=== PATIENT | female | born 1960 | race Caucasian/White ===

== ENCOUNTER 2022-11-24 09:34 | Inpatient (IN) ==
[2022-11-24 12:03] LABS: ABS Lymphocytes 1.2 10^3/uL (1.0-4.8); ABS Monocytes 0.4 10^3/uL (0.0-0.9); ABS Neutrophils 5.1 10^3/uL (1.5-7.6); ABS Nucleated RBC 0.01 10^3/ul; Eosinophil % 0.5 %; Hematocrit 39.4 % (35-45); Hemoglobin 13.3 g/dL (11.5-14.3); Lymphocyte % 17.7 %; Mean Corpuscular Hemoglobin 30.1 pg (27-33); Mean Corpuscular Hgb Conc 33.8 g/dL (31-36); Mean Corpuscular Volume 89.1 fL (80-97); Mean Platelet Volume 7.6 fL (7.5-11.2); Nucleated Red Blood Cells % 0.1 /100 WBC (0.0-0.4); Platelet Count 306 10^3/uL (150-450); Red Blood Count 4.43 10^6/uL (3.63-4.92); Red Cell Distribution Width 13.7 % (12-17); White Blood Count 6.8 10^3/uL (3.8-11.8)
[2022-11-24 12:17] LABS: ALT 16 U/L (7-52); AST 16 U/L (13-39); Albumin 4.5 g/dL (3.2-5.2); Albumin/Globulin Ratio 1.6 (1-3); Alkaline Phosphatase 118 U/L (35-149); Anion Gap 8 mmol/L (2-16); Blood Urea Nitrogen 20 mg/dL (6-24); CO2 Carbon Dioxide 24 mmol/L (22-32); Calcium 9.6 mg/dL (8.6-10.3); Chloride 104 mmol/L (101-111); Globulin 2.8 g/dL (2-4); Glucose 83 mg/dL (70-100); Potassium 4.2 mmol/L (3.5-5.0); Sodium 136 mmol/L (135-145); Total Protein 7.3 g/dL (6.4-8.9); eGFR CKD-EPI 97.7 (>60)
[2022-11-24 12:54] LABS: TSH Ultra Thyroid Stim Horm 0.56 mcIU/mL (0.34-5.60)
[2022-11-24 13:12] LABS: Acetaminophen < 15 mcg/mL; Alcohol, S < 13 mg/dL (<13); Salicylate < 2.50 mg/dL (<30)
[2022-11-24 14:55] LABS: Urine Appearance Cloudy; Urine Bilirubin Negative (Negative); Urine Blood 3+ (Negative); Urine Color Yellow; Urine Glucose Negative (Negative); Urine Ketones Negative (Negative); Urine Nitrite Negative (Negative); Urine Protein 1+(30 mg/dL) (Negative); Urine Specific Gravity 1.024 (1.002-1.030); Urine Urobilinogen Negative (Negative)
[2022-11-24 15:14] LABS: Urine Benzodiazepine Screen Presumptive Positive (None Detect); Urine Cannabinoids Screen None Detected (None Detect); Urine Opiates Screen None Detected (None Detect)
[2022-11-24 15:18] LABS: Urine Bacteria Absent (Absent); Urine Red Blood Cell 2+(6-10/hpf) (Absent); Urine Squamous Epithelial Cell Present (Absent); Urine White Blood Cell Trace(0-5/hpf) (Absent)
[2022-11-24] MEDS ORDERED: Al Hydrox/Mg Hydrox/Simet LIQ 30 ML UDC PO PRN (18:41)
[2022-11-25] MEDS: Vitamin THERAPEUTIC TAB PO SCH (08:21)
[2022-11-26 08:12] LABS: HDL Cholesterol 67.9 mg/dL
[2022-11-26] MEDS: Vitamin THERAPEUTIC TAB PO SCH (08:21)
[2022-11-27] MEDS: Vitamin THERAPEUTIC TAB PO SCH (09:09)
[2022-11-27] MEDS ORDERED: Lorazepam PYXIS KEY PRN (18:16)
[2022-11-27] MEDS ORDERED: LORazepam 2 mg VIAL 1 ml IM ONE (18:16)
[2022-11-27] MEDS ORDERED: hydrALAZINE 20 mg/ml 1 ML Vial IV IV SLOW PU ONE (18:17)
[2022-11-28] MEDS: Vitamin THERAPEUTIC TAB PO SCH (07:43)
[2022-11-29] MEDS: Vitamin THERAPEUTIC TAB PO SCH (08:30)
[2022-11-30] MEDS: Vitamin THERAPEUTIC TAB PO SCH (08:16)
[2022-12-01] MEDS: Vitamin THERAPEUTIC TAB PO SCH (08:54)
[2022-12-02] MEDS: Vitamin THERAPEUTIC TAB PO SCH (08:11)
[2022-12-03] MEDS: Vitamin THERAPEUTIC TAB PO SCH (09:01)
[2022-12-03] MEDS ORDERED: BUPRENORPHINE TRANSDERM SCH (11:00)
[2022-12-04] MEDS: Vitamin THERAPEUTIC TAB PO SCH (08:59)
[2022-12-05] MEDS: Vitamin THERAPEUTIC TAB PO SCH (09:07)
[2022-12-06] MEDS: Vitamin THERAPEUTIC TAB PO SCH (08:28)
[2022-12-07] MEDS: Vitamin THERAPEUTIC TAB PO SCH (08:52)
[2022-12-08] MEDS: Vitamin THERAPEUTIC TAB PO SCH (08:58)
[2022-12-08 10:49] VITALS: BP 170/92
== END 2022-12-08 11:23 | disposition home or self-care (01) | DRG 751 ==
LOC: ED 09:34 → EDHOLD 17:34 → BSU 20:11
PROVIDERS: ADMIT Psychiatry & Neurology Psychiatry; ATTEND Psychiatry & Neurology Psychiatry